=== PATIENT | female | born 1970 | race Caucasian/White ===

== ENCOUNTER 2024-04-10 10:00 | Outpatient (RCR) | payer MEDICAID, SELFPAY ==
--- NOTE | 2024-04-08 14:53 | HP.OTEVAL_ITS ---
Patient's Visit Information Visit Information Visit Information: AKASH JACKSON is a 53 year old F, referred to Occupational Therapy by Dr. Enoc Chow MD, with a diagnosis of L MCA ischemic stroke. Date of Evaluation: 04/08/24 Occupational Therapist: Paty Matthew Subjective Subjective: This 53 year old female arrives s/p L MCA ischemic stroke Jul 2023, hematoma post craniotomy 07/23/23 hematoma evacuation and cranioplasty with scalp repair 12/29/22. On 02/01/24 scalp swelling infected with MRSA and removed. Pt started off in [facility] tras[facility]fered to [facility] then to [facility] then to [facility] then [facility] and back to [facility] after infection to home. 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 Pt R dominant side is affected. Assistance for all self care tasks at this time. Currently wearing helmet with appointment April 15 to consult with regarding flap being put back in [place]. Objective Objective/Observation: pt arrives in wheelchair with RUE arm sling and R LE AFO. ROM ROM Comments: RUE flaccid no AROM LUE AROM WFL Strength Shoulder: R shoulder 8 pounds Elbow: triceps 6.9 biceps 13.4 Industrial Ecology Technician: L 30 R 0 Lateral Pinch: L 3 R 0 Tripod Pinch: L 8 R 0 Strength Comments: no active muscle contraction at RUE Sensation Sensation Comments: pt able to feel sensation along RUE however does report diminished feel of hot and cold temperatures Movement Muscle Tone: modified cici scale score 1 Movement Comments: RUE flaccid Visual/Perceptual Skills Comments: per had severe neglect initially but doing much better now able to track finger on R side Quick DASH-Disab of Arm,Shoulder& Hand Quick DASH Score: 70.4525 Goals Goal:: pt will increase RUE AROM improved motor control into flexor synergy pattern demonstrating 40 degrees or more elbow flexion combined with IR to promote self feeding with RUE pt will increase R scapular movement demonstrating ability to shrug and retract scapula 4/5 trials on command pt will increase R motor control of triceps demonstrating ability to control movement into extension 4/5 trials to promote movement outside of flexor synergy pattern Goal:: pt will attend to R side throughout session with x2 cues or less in order to promote awareness to R side for I in self care/ daily activities Goal:: per pt/caregiver report pt will be set up in grooming tasks per pt/caregiver report pt will be set up in dressing tasks per pt/caregiver report pt will be set up in toielting tasks Goal:: pt will demonstrate the ability to attend to items on R side 100% of session when provided with command 5/5 trials Goal:: pt will improve quick dash score by 15 points or more (70.45) in order to increase functional use of RUE Goal:: pt/caregiver will demonsrate 100% accuracy in RUE HEP by 4th session pt / caregiver will demonstrate 100% knowledge in proper joint protection and positioning by discharge pt / caregiver will verbalize knowledge in at least x3 adaptive tools to promote I in self care tasks Rehabilitation General Assessment: This 53 year old female presents with L MCA ischemic stroke with multi complications impacting R side no active movement felt. Pt would benefit to be seen by OT 1-2 x a week for 4-6 week duration in order to promote motor control as well as provide caregiver training Rehabilitation Potential: Good Anticipated Interventions Anticipated Interventions: A/AAROM/PROM, Strengthening, Orthoses, Joint Protection/Energy Conservation, Fine Motor Coord/Herber, Neuro Reeducation, ADL Training, Education re assistive Equipment, Education re Diagnosis, Caregiver Training and Home Program Visit Plan Frequency: 1-2x /Week Duration: 4-6 Weeks General Plan: motor control training scapular motor control AROM caregiver training adaptive tool training positioning and joint protection TEXT: Thank you for the opportunity to evaluate your patient. For Medicare and Medicare HMO plans, please review the plan of care and approve it. It will need to be FAXED BACK to us at [phone] for Medicare purposes. Please let me know if there are questions or concerns regarding this plan of care. Physician Signature: Date:
--- NOTE | 2024-04-08 15:03 | HP.PTEVAL_ITS ---
Patient's Visit Information Visit Information Visit Information: AKASH JACKSON is a 53 year old F referred to Physical Therapy by Dr. Enco Chow MD with a diagnosis of Epidural Hematoma. Date of Evaluation: 04/08/24 Physical Therapist: Charleen Mackenzie DPT Visit Plan Frequency: 2x /Week Duration: 6 Weeks Plan: Focus on LE and core strength/stabilization- functional mobility- gait, proprioception and stairs GAIT BELT and Cranial Helmet Subjective Subjective: Prior to this she was fully functional- July 21, 2024- she is epileptic- she was not feeling right- finally got her to go to the hospital- she was stroking out for about 15 hours- they just did not know. 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 Single story home with 2-4 stairs to enter without a ramp- she is able to go up the stairs with assistance. Lives with family- he is home with her all the time. She does not have any pain. She has a helmet but does not wear it all the time. She does not try anything without significant other. Her right knee and ankle will buckle. She has assistance with all mobility- she wears gait belt but can stand at the sink and brush her teeth but he is always there. She can walk down 4 steps and 25 feet with moderate assistance and a cane. Objective Objective: Posture: forward head, rounded shoulders- can correct with verbal and tactile cues but does not maintain Observation: sling intact on right UE- stock AFO on the right LE Transfers: sit to stand: CGA for safety- all weight on the left LE- does push through the left UE to stand Gait: wheelchair follow- 15 feet- step to pattern with min A for safety- single point cane- circumduction of the right LE Balance: TEJEDA:26/56 ROM: WFL in all planes of the LE Strength: Core: fair minus, Left LE: 5/5 throughout Right: Hip: Flexion: 2+/5, Abd: 2+/5, Add: 3+/5, Knee: Flexion: 3+/5, Extn: 3+/5, Ankle: DF: 2+/5 PF: 3+/5 Balance/Special Test Scores Lower Extremity Functional Score: 9 Goals Goal 1:: Patient will be I with HEP and progression Goal Time Frame: 12-16 Weeks Goal 2:: Patient will ambulate >150 feet mod I with LRD Goal Time Frame: 12-16 Weeks Goal 3:: Patient will asc/desc 8 stairs recip with 2 HR with supervision Goal Time Frame: 12-16 Weeks Goal 4:: Patient will transfer mod I with LRD Goal Time Frame: 12-16 Weeks Goal 5:: Patient will report 80% improvement Goal Time Frame: 12-16 Weeks Rehabilitation Potential Physical Therapy Diagnosis: Patient presents with hypomobility- she has decreased LE and core strength/stabilization, proprioception, flex and muscular endurance leading to decreased balance, transfers, abnormal gait and decreased ability to perform ADL's. Rehabilitation Potential: Fair Anticipated Interventions Patient/Client Instruction: Educate patient on: Benefits of Fitness Program Therapeutic Exercise to Include: Strength training, Endurance training, Balance training, Coordination, Agility training, Body mechanics, Postural training, Flexibilty training, Gait and locomotor training, Neuromotor development, Dynamic Lumbar Stabilization and Scapular Strength/Stabilization For the Purpose of:: To improve muscle performance and motor function Functional Training to Include: ADL Training and Gait training Text: Thank you for the opportunity to evaluate your patient. For Medicare and Medicare HMO plans, please review the plan of care and approve it. It will need to be FAXED BACK to us at [phone] for Medicare purposes. For Medicare only, by signing this I certify the plan of care. Please let me know if there are questions or concerns regarding this plan of care. Physician Signature: Date:
--- NOTE | 2024-04-13 13:45 | HP.SP.EV_ITS ---
Visit History Visit Info Date of Eval: 04/10/24 Visit: 1 Ferris Wheel Attendant: TEODORO History Attending Doctor: Referring Doctor: Reason for Referral: STROKE/RX HERE Medical Diagnosis: CVA Date of Onset of Diagnosis: July 2023 Previous speech therapy: Yes Other Relevant Medical History/Diagnoses/Surgery: Epilepsy previous had tonic clonic and current absent seizures, Heart stents. This 53 year old female arrives s/p L MCA ischemic stroke Jul 2023, hematoma post craniotomy 07/23/23 hematoma evacuation and cranioplasty with scalp repair 12/29/22. On 02/01/24 scalp swelling infected with MRSA and removed. Pt started off in [facility] transferred to [facility] then to [facility] then to [facility] and back to [facility] after infection to home. 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 Pt R dominant side is affected. Assistance for all self care tasks at this time. Currently wearing helmet with appointment April 15 to consult with regarding flap being put back in place. Medications related to this diagnosis: Keppra, aspirin, atorvastatin, baclofen, buSpar, levenox, gabapentin, prevacid, toprol-XL, seroquel, senna, sertraline Diagnosis Diagnosis: Severe receptive/ expressive aphasia. Pain Is pain an issue with your current prescribed condition?: No Personal Preferred language: Sudanese Objective Cog/Ling/Com Test Administered Brszojtbc-Auhmmwsxfw-Dgazmqmjszrbr Assessment Administered: Yes Htkemoxmk-Bigsoowals-Aegkhtsiczjfs Assessment: Cognitive ? Linguistic skills were evaluated using patient/family interview, skilled observation and informal evaluation through tasks completed by the patient. Orientation Orientation: Person Identification Body parts/objects: Moderate Colors: Moderate Letters: Severe Answer Yes/No Questions Simple: Mild Complex: Severe Follows Commands 1 Step: Mild 2 Step: Severe Automatic Sequences Automatic Sequences: Severe Repetition Words: Severe Sentences: Severe Naming Responsive naming: Severe Naming in categories: Severe [place]: Severe Abstract: Severe Conversational Tasks Conversational Tasks: Severe Comments: Patient was able to approximate some words to be intelligible but others were just denden. Writing Comments: Patient is right handed and her right hand is affected. Reference: Neuro-QoL instrument Radiation Oncology Patient Other Other AAC: -: Therapist gave patient and her a basic AAC board to help with communication at home as patient is attempted to gesture and point but at times it is unclear. This board has bathroom, TV, food, drink, etc type basic needs. Further assessment to consider AAC will be done. Plan Plan Plan: Speech therapy is warranted for severe deficits in language skills. Recommendations Treatment Warranted: Receptive/ Expressive Language Progress Prognosis: Good Frequency Frequency: 2x /Week Duration: 2 Months Visits in this POC: 16 Goal #1-5 Goal #1: Zarina will complete object identification on 4/5 trials on 2/3 consecutive sessions. Goal #2: Zarina will complete automatic speech tasks on 4/5 trials on 2/3 consecutive sessions. Goal #3: Zarina will answer questions regarding personal information, wants and needs utilizing a total communication approach through pointing, gesturing, pictures, written words or verbalize on 4/5 trials on 2/3 consecutive sessions. Education Patient has Indicated that the Following Identified Educational Needs: Cognitively Impaired and Hearing/Vision/Speech Impaired Patient Instruction Patient Education: Diagnosis, Treatment Plan and Goals Person Taught: Patient and Family Teaching Method: Discussion Response to teaching: Verbalize understanding and Has Prior Knowledge
--- NOTE | 2024-05-12 10:14 | HP.OT.NRP ---
Patient Information Patient Information: AKASH JACKSON was seen in my office for initial evaluation on 04/08/24. The following Plan of Care was established for this patient: POC Established Initial Frequency: 1-2x /Week Initial Duration: 4-6 Weeks Anticipated Interventions Anticipated Interventions: A/AAROM/PROM, Strengthening, Orthoses, Joint Protection/Energy Conservation, Fine Motor Coord/Herber, Neuro Reeducation, ADL Training, Education re assistive Equipment, Education re Diagnosis, Caregiver Training and Home Program Last Seen Last Seen: This patient was last seen in our office 04/08/24. Pertinent comments regarding their Occupational therapy will appear below: This 53 year old female seen for OT eval 04/08/24 for MCA ischemic stroke craniotomy as well as complication of MRSA infection. Pt does not return for follow up visits and facility [facility] at [facility]. OT to discharge at this time due to [facility] and time lapse since evaluation. At this point I will be discontinuing this patient from occupational therapy. I would be happy to see this patient again in the future if found appropriate by the physician. Thank you! Paty Matthew
--- NOTE | 2024-05-14 12:55 | HP.PT.NRP ---
Patient Information Patient Information: AKASH JACKSON was seen in my office for initial evaluation on 04/08/24. The following Plan of Care was established for this patient: POC Established Initial Frequency: 2x /Week Initial Duration: 6 Weeks Anticipated Interventions Patient/Client Instruction: Educate patient on: Benefits of Fitness Program Therapeutic Exercise to Include: Strength training, Endurance training, Balance training, Coordination, Agility training, Body mechanics, Postural training, Flexibilty training, Gait and locomotor training, Neuromotor development, Dynamic Lumbar Stabilization and Scapular Strength/Stabilization For the Purpose of:: To improve muscle performance and motor function Functional Training to Include: ADL Training and Gait training Last Seen Last Seen: This patient was last seen in our office . Pertinent comments regarding their Physical therapy will appear below: Patient is currently in SNF- appropriate to be d/c from outpatient PT At this point I will be discontinuing this patient from physical therapy. I would be happy to see this patient again in the future if found appropriate by the physician. Thank you! Charleen Mackenzie, SUPRIYAT Balance/Gait/Functional tests Balance/Special Test Scores Lower Extremity Functional Score: 9
== END 2024-04-10 19:00 | disposition home or self-care (01) ==
LOC: SP 10:00
PROVIDERS: Referring Provider Physical Medicine & Rehabilitation; Visit Provider Physical Medicine & Rehabilitation
DX: I69.30 Unspecified sequelae of cerebral infarction (principal); G93.6 Cerebral edema; J96.01 Acute respiratory failure with hypoxia; J18.9 Pneumonia, unspecified organism; Z93.0 Tracheostomy status; G93.5 Compression of brain; R74.8 Abnormal levels of other serum enzymes; R13.10 Dysphagia, unspecified; G81.90 Hemiplegia, unspecified affecting unspecified side; M62.838 Other muscle spasm; R47.01 Aphasia; G06.0 Intracranial abscess and granuloma
CPT/HCPCS: 92523; 97162; 97166; 97530

== ENCOUNTER → 2024-06-01 | Outpatient (CLI) | payer MEDICAID, SELFPAY ==
--- NOTE | 2024-06-01 13:40 | BI_ITS ---
MAMMOGRAPHY - BILATERAL SCREENING REASON FOR EXAM: Female, 54 years old. Routine annual screening examination. PERTINENT HISTORY: Non-contributory. Prior bilateral breast biopsy. Palpable lump in the deep inferior medial aspect of the left breast. TECHNIQUE: Digital bilateral breast nancy (3D mammographic acquisition) in the CC and MLO projections. 2-D mediolateral oblique (MLO) and craniocaudad (CC) views of both breasts were obtained. CAD: Full Field Digital Mammography with Computer Added Detection was performed. COMPARISON: No comparison mammograms available at this time. If any prior films become available, an addendum to this report can be generated. FINDINGS: Breast Composition: The breasts are heterogeneously dense, which may obscure small masses. There is a 1.8 cm x 1.1 cm nodule in the inferior central portion of the right breast. A tissue clip marker is seen within it. A tissue clip marker is also seen in the upper lateral aspect of the left breast. No other significant abnormalities are identified. BI/SCRN MAMM (CAD)W/NANCY BILAT IMPRESSION: Bilateral breast biopsies. With the patient''s history of a palpable lump in the inferior medial aspect of the left breast, correlation with ultrasound is recommended. ASSESSMENT CATEGORY: BIRADS Category 0: Incomplete. Need additional imaging evaluation. A letter regarding these results will be sent to the patient by the facility within 30 days. Approximately 10% of breast cancers are not detected by mammography. A normal mammogram should not delay biopsy of a clinically suspicious abnormality. [id number] Electronically Signed: Jan Bowman MD at 15:01 EDT ,
== END | disposition home or self-care (01) ==
LOC: OPBI 13:38
PROVIDERS: PCP Family Medicine; Referring Provider Nurse Practitioner Family; Visit Provider Nurse Practitioner Family
DX: Z12.31 Encounter for screening mammogram for malignant neoplasm of breast (principal)
CPT/HCPCS: 77063; 77067

== ENCOUNTER → 2024-06-10 | Outpatient (CLI) | payer MEDICAID, SELFPAY ==
--- NOTE | 2024-06-10 13:35 | US_ITS ---
STUDY: ULTRASOUND BREAST - LEFT REASON FOR EXAM: Female, 54 years old. Palpable lump in the inferior medial aspect of the left breast. TECHNIQUE: Axial and longitudinal images of the LEFT breast were performed with a high resolution ultrasound transducer. # OF IMAGES: 35 COMPARISON: Comparison is made with the prior mammogram dated June 01, 2024. FINDINGS: LEFT Breast: The inferior medial aspect of the left breast was examined with ultrasound. No sonographic abnormality is seen. US/Breast Limited Unilateral IMPRESSION: No sonographic abnormality is seen. ASSESSMENT CATEGORY: BIRADS Category 1: Negative. A letter regarding these results will be sent to the patient by the facility within 30 days. Electronically Signed: Jan Bowman MD at 15:45 EDT ,
== END | disposition home or self-care (01) ==
LOC: OPUS 13:34
PROVIDERS: PCP Family Medicine; Referring Provider Nurse Practitioner Family; Visit Provider Nurse Practitioner Family
DX: N63.20 Unspecified lump in the left breast, unspecified quadrant (principal); R92.0 Mammographic microcalcification found on diagnostic imaging of breast
CPT/HCPCS: 76642

== ENCOUNTER 2024-07-02 19:55 | Emergency (ER) | payer MEDICAID, SELFPAY ==
[2024-07-02 19:56] VITALS: BP 137/66; PULSE 68; RESP 16; TEMP 36.8; O2SAT 99; BMI 33.7
--- NOTE | 2024-07-02 20:50 | EDS_ITS ---
HPI <Dr. Jared Shukla MD - Last Filed: 07/02/24 22:32> HPI - GI History of Present Illness Chief Complaint: Abd Pain Detail of Chief Complaint: Right-sided abdominal pain is started 3 days ago. Informant: patient, family, EMS and SNF Abdominal Pain/Flank Pain Onset: Days Context: - (Unable to determine. Patient has dysarthria and expressive aphasia status post stroke) Timing: Continuous Quality: - (Described as pain) Location: RUQ and RLQ Current Severity: Unable to quantitate Maximum Severity: Unable to quantitate Worsened by: - (unknown) Narrative Narrative: History is limited due to speech impediment from stroke. According to family ember that is whether she has had pain for 3 days. Pain has been on the right side. She points to the mid right abdomen. Uncertain whether she has had vomiting. She may have had diarrhea. Unable to get much else from patient. Prior similar symptoms: No Recent Illness/Hospitalization: No PFSH <Dr. Jared Shukla MD - Last Filed: 07/02/24 22:32> [facility] Medical History (Updated 07/03/24 @ 04:[address] Caitlyn Wheeler, DO) Upper abdominal pain UTI (urinary tract infection) Syncope and collapse Dysuria Acute cystitis Hemiplegia and hemiparesis following cerebral infarction affecting right dominant side GERD (gastroesophageal reflux disease) Major depressive disorder Anxiety disorder Atherosclerotic heart disease of [place] coronary artery without angina pectoris Hyperlipidemia Essential hypertension Other seizures Respiratory failure, unspecified, unspecified whether with hypoxia or hypercapnia Dysphagia following cerebral infarction Aphasia following cerebral infarction Spastic hemiplegia affecting unspecified side 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 Jared Shukla MD - Last Filed: 07/02/24 22:32> ROS ED Review of Systems ROS Unobtainable: due to mental status Gastrointestinal Gastrointestinal: Reports abdominal pain, diarrhea and nausea EXAM <Dr. Jared Shukla MD - Last Filed: 07/02/24 22:32> Physical Exam Const Vital Signs: 07/02/24 19:56 07/02/24 21:55 07/02/24 23:00 Temperature 98.2 F Temperature Source Oral Pulse Rate 68 67 88 Respiratory Rate 16 18 18 Blood Pressure 137/66 H 120/49 L 112/56 L Blood Pressure Mean 89 72 74 Pulse Ox 99 98 96 Oxygen Delivery Method Room Air Room Air Room Air 07/03/24 01:00 07/03/24 03:00 07/03/24 03:50 Temperature 98 F Temperature Source Pulse Rate 88 70 70 Respiratory Rate 19 H 14 14 Blood Pressure 118/90 H 133/70 H 133/70 H Blood Pressure Mean 99 91 91 Pulse Ox 96 97 97 Oxygen Delivery Method Room Air Room Air Positive well nourished, well developed and unkempt Constitutional Narrative: Patient appears ill. She appears uncomfortable. General Appearance ED: unkempt, well developed and pallor HEENT Reports dry mucous membranes normocephalic and atraumatic Mouth ED: Yes dry mucous membranes Mouth: dry mucous membranes Eyes PERRL and EOMs intact bilaterally General Eye ED: Yes pale conjunctiva; Negative for scleral icterus Neck no lymphadenopathy, supple and no JVD Chest Wall Chest Narrative: Normal appearance and normal to palpation Resp normal respiratory effort and clear to auscultation bilaterally Cardio regular rate, regular rhythm, S1 normal heart sound, S2 normal heart sound and no murmurs GI non-distended and no masses; Negative for non-tender Auscultation: hypoactive bowel sounds Palpation: soft, tender RLQ and RUQ and guarding RLQ and RUQ; Negative for rigid, hepatomegaly, splenomegaly, hernia, mass or rebound tenderness present Back/Spine no CVA tenderness Extremity Extremity Narrative: Significant weakness on the right side. General Extremety ED: Yes edema General Extremity: edema Neuro No moves all extremities, No no sensory deficits noted and No gait normal Sensorium / Orientation: Negative for alert Psych Appearance: unkempt Mood & Affect: depressed Skin General Skin Exam: pallor; Negative for jaundice <Dr. Caitlyn Wheeler, DO - Last Filed: 07/03/24 04:59> Physical Exam Const Vital Signs: 07/02/24 19:56 07/02/24 21:55 07/02/24 23:00 Temperature 98.2 F Temperature Source Oral Pulse Rate 68 67 88 Respiratory Rate 16 18 18 Blood Pressure 137/66 H 120/49 L 112/56 L Blood Pressure Mean 89 72 74 Pulse Ox 99 98 96 Oxygen Delivery Method Room Air Room Air Room Air 07/03/24 01:00 07/03/24 03:00 07/03/24 03:50 Temperature 98 F Temperature Source Pulse Rate 88 70 70 Respiratory Rate 19 H 14 14 Blood Pressure 118/90 H 133/70 H 133/70 H Blood Pressure Mean 99 91 91 Pulse Ox 96 97 97 Oxygen Delivery Method Room Air Room Air [facility] <Dr. Jared Shukla MD - Last Filed: 07/02/24 22:32> [facility] Narrative Medical decision making narrative: Differential diagnosis includes abdominal pain unknown etiology, viral illness such as diarrhea, cholelithiasis/cholecystitis, appendicitis, regional enteritis. Workup included liver profile, CBC, electrolyte panel. Depending on laboratory results will determine if patient should be evaluated with a CAT scan versus ultrasound of the right upper quadrant. Patient was medicated with Zofran for her nausea and morphine for her pain. Lab Data Attestation: I reviewed the patient's lab results. Lab results narrative: CBC is unremarkable. BMP is unremarkable. Chloride slightly evaded 108. Liver enzymes are essentially normal. Glucose slight elevated 114 with normal CO2 anion gap. Labs: Laboratory Results - last 24 hr 07/02/24 07/03/24 20:59 02:28 WBC 9.5 RBC 4.83 Hgb 12.3 Hct 39.5 MCV 81.8 MCH 25.5 L MCHC 31.1 L RDW Std Deviation 48.8 H RDW Coeff of Nava 16.3 H Plt Count 263 MPV 10.4 Immature Gran % (Auto) 0.600 Neut % (Auto) 50.2 Lymph % (Auto) 36.6 [place] % (Auto) 10.0 Eos % (Auto) 2.2 Baso % (Auto) 0.4 Absolute Neuts (auto) 4.7 Absolute Lymphs (auto) 3.47 Nucleated RBC % 0 Sodium 140 Potassium 4.4 Chloride 108 H Carbon Dioxide 25.0 Anion Gap 7 BUN 15 Creatinine 0.86 Estim Creat Clear Calc 88.89 Est GFR (MDRD) Af Amer 89 Est GFR (MDRD) Non-Af 74 BUN/Creatinine Ratio 17.4 Glucose 114 H Calcium 9.4 Total Bilirubin < 0.10 L Direct Bilirubin 0.07 AST 14 L ALT 24 Alkaline Phosphatase 128 H Total Protein 7.4 Albumin 3.1 L Globulin 4.3 H Lipase 35 Urine Color Yellow Urine Clarity Sl. Cloudy Urine pH 6.0 Ur Specific Breaks 1.020 Urine Protein 15 H Urine Glucose (UA) Normal Urine Ketones Negative Urine Occult Blood 250 H Urine Nitrite Positive H Urine Bilirubin Negative Urine Urobilinogen Normal Ur Leukocyte Esterase 500 H Urine RBC > 100 SEEN Urine WBC >100 SEEN Ur Squamous Epith Cells 0 SEEN Urine Bacteria 4+ Urine Mucus 0 SEEN Radiography Diagnostic Testing: Clinical Impression(s) from Imaging Studies Abdomen/Pelvis CT 07/02/24 22:30 IMPRESSION: Multiple nonobstructive right kidney stones, the largest measures 9 mm. Electronically Signed: Fercho Tellez MD at 0:13 EDT , Treatment and Re-Evaluation :: Since blood work is unremarkable and she has both right upper and right lower pain. Right lower being greater we will obtain CT of the abdomen. Case was turned over to the evening physician to make disposition pending CAT scan results. Son and patient were made aware that a CAT scan was ordered and that the evening physician, Dr. Wheeler will inform of results and disposition. <Dr. Caitlyn Wheeler, DO - Last Filed: 07/03/24 04:59> [facility] Narrative Medical decision making narrative: Differential diagnosis includes abdominal pain unknown etiology, viral illness such as diarrhea, cholelithiasis/cholecystitis, appendicitis, regional enteritis. Workup included liver profile, CBC, electrolyte panel. Depending on laboratory results will determine if patient should be evaluated with a CAT scan versus ultrasound of the right upper quadrant. Patient was medicated with Zofran for her nausea and morphine for her pain. Summer: Patient signed out to me pending CT imaging. Lab work largely normal. Urinalysis is added on as well. CT of the abdomen and pelvis does show nonobstructive right kidney stones largest measuring 9 mm. I do not think this is the cause of her pain. There is no comment any perinephric stranding. Urinalysis is consistent with urinary tract infection with positive nitrates, greater than 100 red blood cells, greater than 100 white blood cells and 4+ bacteria.No epithelial cells are noted. Patient is given Tylenol for further pain control. On repeat evaluation she is well-appearing. Vital signs are normal in the emergency room. Low suspicion for sepsis or more insidious infection at this time. Patient is started on Bactrim and given first dose in the emergency room. Will place on a 7-day course. I do not think she requires admission or IV antibiotics at this time. Discharged back [facility]. Lab Data Labs: Laboratory Results - last 24 hr 07/02/24 07/03/24 20:59 02:28 WBC 9.5 RBC 4.83 Hgb 12.3 Hct 39.5 MCV 81.8 MCH 25.5 L MCHC 31.1 L RDW Std Deviation 48.8 H RDW Coeff of [place] 16.3 H Plt Count 263 MPV 10.4 Immature Gran % (Auto) 0.600 Neut % (Auto) 50.2 Lymph % (Auto) 36.6 [place] % (Auto) 10.0 Eos % (Auto) 2.2 Baso % (Auto) 0.4 Absolute Neuts (auto) 4.7 Absolute Lymphs (auto) 3.47 Nucleated RBC % 0 Sodium 140 Potassium 4.4 Chloride 108 H Carbon Dioxide 25.0 Anion Gap 7 BUN 15 Creatinine 0.86 Estim Creat Clear Calc 88.89 Est GFR (MDRD) Af Amer 89 Est GFR (MDRD) Non-Af 74 BUN/Creatinine Ratio 17.4 Glucose 114 H Calcium 9.4 Total Bilirubin < 0.10 L Direct Bilirubin 0.07 AST 14 L ALT 24 Alkaline Phosphatase 128 H Total Protein 7.4 Albumin 3.1 L Globulin 4.3 H Lipase 35 Urine Color Yellow Urine Clarity Sl. Cloudy Urine pH 6.0 Ur Specific Breaks 1.020 Urine Protein 15 H Urine Glucose (UA) Normal Urine Ketones Negative Urine Occult Blood 250 H Urine Nitrite Positive H Urine Bilirubin Negative Urine Urobilinogen Normal Ur Leukocyte Esterase 500 H Urine RBC > 100 SEEN Urine WBC >100 SEEN Ur Squamous Epith Cells 0 SEEN Urine Bacteria 4+ Urine Mucus 0 SEEN Radiography Diagnostic Testing: Clinical Impression(s) from Imaging Studies Abdomen/Pelvis CT 07/02/24 22:30 IMPRESSION: Multiple nonobstructive right kidney stones, the largest measures 9 mm. Electronically Signed: Fercho Tellez MD at 0:13 EDT , Discharge Plan Triage Chief Complaint: Abd Pain ED Provider: Jared Shukla Dx/Rx/DC Orders Clinical Impression: Right sided abdominal pain, UTI (urinary tract infection), Kidney stone on right side Instructions: ED Kidney Stone No Sx, ED Cystitis Female Adult Prescriptions: New sulfamethoxazole-trimethoprim [Bactrim DS] 800-160 mg tablet 1 tab PO BID Qty: 14 0RF Primary Care Provider: Jr Araiza Referrals: Jr Araiza MD [Primary Care Provider] - Activity Restrictions/Additional Instructions: Zarina does appear to have a urinary tract infection. Her lab work is largely normal. Her CT did show kidney stones in the right kidney but they do not appear to be passing and I do not think are causing any of her acute pain or issues at this time. They are not causing any hydronephrosis. Please follow-up with her primary care doctor next week return with worsening symptoms. Print Language: German Disposition Disposition: Long Term Facility Discharge Location: [facility] [place]
[2024-07-02] MEDS: Ondansetron 4 MG/2 ML Vial IV (20:58)
[2024-07-02] MEDS: Morphine 4 MG/ML Syringe IV (20:58)
[2024-07-02] MEDS: 0.9% Normal Saline (1000mL) 1,000 ML 125 ML IV (20:59)
[2024-07-02 21:06] LABS: Absolute Lymphocyte Count 3.47 X10^3/uL (0.83-4.51); Absolute Neutrophil Count 4.7 X10^3/uL (2.0-7.7); Basophil# 0.04 X10^3/uL; Basophil% 0.4 % (0-1); Eosinophil# 0.21 X10^3/uL; Eosinophils% 2.2 % (0-5); Hematocrit 39.5 % (37-47); Hemoglobin 12.3 g/dL (12.0-15.0); Lymphocyte # 3.47 X10^3/ul (0.83-4.51); Lymphocyte % 36.6 % (19-41); Mean Corp Hgb Conc 31.1 g/dL (32-36); Mean Corpuscular Hgb 25.5 pg (27.0-32.0); Mean Corpuscular Volume 81.8 fL (81-99); Mean Platelet Vol. 10.4 fl (6.2-12.0); Monocyte# 0.95 X10^3/uL; NRBC Flagged by Analyzer 0 % (0-5); Neutrophil # 4.74 X10^3/uL (2.7-7.7); Neutrophil % 50.2 % (47-70); Platelet Count 263 K/mm3 (150-450); RBC Distribution Width CV 16.3 % (11.6-14.6); RBC Distribution Width SD 48.8 fl (35.1-43.9); Red Blood Count 4.83 M/mm3 (4.2-5.4); White Blood Count 9.5 K/mm3 (4.4-11.0)
[2024-07-02 21:46] LABS: AST(SGOT) 14 U/L (15-37); Alanine Aminotransfer ALT/SGPT 24 U/L (13-56); Albumin, Serum 3.1 g/dL (3.2-5.0); Alkaline Phosphatase 128 U/L (45-117); Anion Gap 7 (5-15); BUN 15 mg/dL (7-18); BUN/Creat Ratio 17.4 RATIO (10-20); Bilirubin, Direct 0.07 mg/dL (0.00-0.30); Calcium,Total 9.4 mg/dL (8.5-10.1); Chloride 108 mmol/L (98-107); Creatinine, Serum 0.86 mg/dL (0.55-1.02); EST Glomerular Filtration Rate 74 mL/min (>60); Est Glom Filt Rate - Afr Amer 89 mL/min (>60); Estimated Creatinine Clearance 88.89 ml/min; Globulin 4.3 g/dL (2.2-4.2); Glucose 114 mg/dL (74-106); Lipase 35 U/L (13-75); Potassium 4.4 mmol/L (3.5-5.1); Protein, Total 7.4 g/dL (6.4-8.2); Sodium Level 140 mmol/L (136-145); Total Bilirubin < 0.10 mg/dL (0.20-1.00)
[2024-07-02 21:55] VITALS: BP 120/49; PULSE 67; RESP 18; O2SAT 98
--- NOTE | 2024-07-02 22:30 | CT_ITS ---
INDICATION: Right-sided abdominal pain EXAMINATION: CT ABDOMEN AND PELVIS WITHOUT CONTRAST - CT Abdomen And Pelvis W/O Contrast Injection TECHNIQUE: Helically acquired images were obtained of the abdomen and pelvis without oral or IV contrast. The protocol utilizes one or more of the following dose reduction techniques: automated exposure control, adjustment of mA and/or kV according to patient size,and/or use of iterative reconstruction technique. IV Contrast dosage and agent: None. Oral contrast: None. RADIATION DOSAGE (If Supplied By Facility): CTDIvol = ( 22.41 ) mGy, DLP = ( 1186.91 ) mGycm COMPARISON: No relevant prior comparison study available FINDINGS: LOWER CHEST: Lung bases are clear. No cardiomegaly or pericardial effusion. LIVER: Homogeneous. No focal mass. GALLBLADDER AND BILIARY TREE: No calcified gallstones. No gallbladder distension or wall edema. No intra- or extrahepatic biliary ductal dilation. PANCREAS: No focal cystic or solid mass. SPLEEN: Normal size without focal cystic or solid mass. ADRENAL GLANDS: No nodules. KIDNEYS AND URETERS: Multiple nonobstructive right kidney stones, the largest measures 9 mm. Normal left kidney . PERITONEUM: No ascites or free air. No other fluid collection. BOWEL: No evidence of acute appendicitis. No stomach or bowel distension. No focal inflammatory change. LYMPH NODES: No enlarged mesenteric or retroperitoneal lymph nodes. VESSELS: Aorta is non-dilated. URINARY BLADDER: Unremarkable. REPRODUCTIVE ORGANS: No pelvic masses. ABDOMINAL WALL: No discrete abdominal or pelvic wall hernia. BONES: No lytic or blastic abnormality. CT/Abdomen/Pelvis without Cont IMPRESSION: Multiple nonobstructive right kidney stones, the largest measures 9 mm. Electronically Signed: Fercho Tellez MD at 0:13 EDT ,
[2024-07-02 23:00] VITALS: BP 112/56; PULSE 88; RESP 18; O2SAT 96
[2024-07-03] MEDS: Acetaminophen 325 MG Tablet 650 MG PO (00:46)
[2024-07-03 01:00] VITALS: BP 118/90; PULSE 88; RESP 19; O2SAT 96
[2024-07-03 02:34] LABS: Mucous, Urine 0 SEEN /hpf (<or=2+); Squamous Epithelial Cells - UA 0 SEEN /hpf (5-10)
[2024-07-03 02:37] LABS: Color, Urine Yellow (Yellow); Glucose, Dipstick Normal (Normal); Ketone-Dipstick Negative (Negative); Leukocyte Esterase-Dipstick 500 /ul (Negative); Nitrite-Dipstick Positive (Negative); Occult Blood-Urine 250 /ul (Negative); Protein-Dipstick 15 mg/dl (Negative); Urine Bilirubin Dipstick Negative (Negative); Urine Clarity Sl. Cloudy (Clear); Urine Urobilinogen Normal (Normal)
[2024-07-03 02:58] LABS: Bacteria 4+ /hpf (None Seen); Red Blood Cells-Urine > 100 SEEN /hpf (0-5); White Blood Cells >100 SEEN /hpf (0-5)
[2024-07-03 03:00] VITALS: BP 133/70; PULSE 70; RESP 14; O2SAT 97
[2024-07-03 03:50] VITALS: BP 133/70; PULSE 70; RESP 14; TEMP 36.6; O2SAT 97
[2024-07-03 05:00] VITALS: BP 146/66; PULSE 60; RESP 18; O2SAT 93
[2024-07-03] MEDS: Smz/Tmp Ds Tablet 1 TABLET PO (05:19)
== END 2024-07-03 05:55 | disposition skilled nursing facility (03) ==
PROVIDERS: Emergency Medicine; Emergency Provider Emergency Medicine; PCP Family Medicine; Referring Provider Emergency Medicine; Visit Provider Emergency Medicine
DX: N39.0 Urinary tract infection, site not specified (principal); I69.351 Hemiplegia and hemiparesis following cerebral infarction affecting right dominant side; N20.0 Calculus of kidney; R10.11 Right upper quadrant pain; R10.31 Right lower quadrant pain; I69.322 Dysarthria following cerebral infarction; I69.320 Aphasia following cerebral infarction; Z87.891 Personal history of nicotine dependence
CPT/HCPCS: 51701; 74176; 80048; 80076; 81001; 83690; 85025; 87077; 87086; 87088; 87186; 96361; 96374; 96375; 99283; P9612; J2405